=== PATIENT | female | born 1955 | race Hispanic/Latino ===

== ENCOUNTER 2020-04-01 16:58 | Emergency (ER) | payer OTHER ==
[2020-04-01 18:04] LABS: BASOPHILS % (AUTO) 0.6 % (0.0-5.0); HEMATOCRIT 41.5 % (36-48); LYMPHOCYTES % (AUTO) 37.2 % (21.0-51.0); MEAN CORPUSCULAR HEMOGLOBIN 28.6 pg (27.0-33.0); MEAN CORPUSCULAR VOLUME 89.2 fL (79-99); MONOCYTES % (AUTO) 5.8 % (3.0-13.0); NEUTROPHILS % (AUTO) 54.3 % (40.0-77.0); PLATELET COUNT (AUTO) 328 K/uL (130-400); RED BLOOD CELL COUNT(AUTO) 4.65 MIL/uL (4.00-5.50); RED CELL DISTRIBUTION WIDTH 13.3 % (11.0-15.5); WHITE BLOOD COUNT (AUTO) 7.8 K/uL (4.8-10.8)
[2020-04-01 18:09] LABS: APPEARANCE,URINE Cloudy (CLEAR); BILIRUBIN,URINE Negative (NEGATIVE); COLOR,URINE Dark Yellow (YELLOW); GLUCOSE, URINE (UA) Negative (NEGATIVE); KETONES,URINE Negative (NEGATIVE); LEUKOCYTE ESTERASE ,URINE Moderate (NEGATIVE); NITRATE,URINE Negative (NEGATIVE); OCCULT BLOOD,URINE Negative (NEGATIVE); PROTEIN,URINE Negative (NEGATIVE); UROBILINOGEN,URINE 0.2 mg/dL (0.2-1.0)
[2020-04-01] MEDS ORDERED: ONDANSETRON HCL 4 MG/2 ML VIAL ONE (18:12)
[2020-04-01 18:15] LABS: CREATININE 0.8 mg/dL (0.5-1.5)
[2020-04-01 18:19] LABS: ALBUMIN 3.5 g/dL (3.5-5.0); BILIRUBIN,TOTAL 0.3 mg/dL (0.2-1.0); TOTAL PROTEIN, SERUM 7.7 g/dL (6.0-8.3)
[2020-04-01 18:19] LABS: BACTERIA,URINE Few /HPF (None Seen); RBC,URINE None Seen /HPF (0-1); SQUAMOUS EPITHELIAL CELL,UR 0-2 /HPF (0-2)
[2020-04-01 18:20] LABS: AMORPHOUS SEDIMENT,UR Few /LPF (None Seen)
[2020-04-01] MEDS ORDERED: IOHEXOL-350 75 ML VIAL IV ONE (18:29)
[2020-04-01] MEDS ORDERED: CEFTRIAXONE SODIUM 1 GM ONE (20:30)
[2020-04-01] MEDS ORDERED: LIDOCAINE HCL-MPF 1% 2ML VIAL ONE (20:30)
== END 2020-04-01 21:05 | disposition home or self-care (01) ==
LOC: EDH 16:58
DX: N39.0 Urinary tract infection, site not specified (principal); Z90.49 Acquired absence of other specified parts of digestive tract; Z90.710 Acquired absence of both cervix and uterus; Z98.890 Other specified postprocedural states
CPT/HCPCS: 36415; 74177; 80053; 81001; 82550; 83690; 84484; 85025; 87088; 96361; 96372; 96374; 99285; J0696; J2405; J3490; Q9967

== ENCOUNTER 2024-09-20 23:45 | Emergency (ER) | payer MEDICARE, OTHER ==
[~2024-09-20] VITALS: Ht 165.1 cm; Wt 133.8 kg
--- NOTE | 2024-09-21 00:03 | NUR ---
PT CARE ASSUMED AT THIS TIME
[2024-09-21] MEDS: HYDROcodone/APAP 5/325 1 TAB TABLET PO ONE (00:15)
--- NOTE | 2024-09-21 00:44 | NUR ---
PT VOICES CONCERN REGAURDING KNEE PAIN AT THIS TIME. ED MD SNIDER MADE AWARE OF CONCERN.
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
[2024-09-21 02:33] VITALS: BP 158/79; PULSE 76; RESP 17; TEMP 99; O2SAT 97
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
== END 2024-09-21 02:44 | disposition home or self-care (01) ==
LOC: EDH 23:45
DX: R51.9 Headache, unspecified (principal); M54.2 Cervicalgia; E11.9 Type 2 diabetes mellitus without complications; E66.01 Morbid (severe) obesity due to excess calories; I10 Essential (primary) hypertension; Z90.49 Acquired absence of other specified parts of digestive tract; Z90.710 Acquired absence of both cervix and uterus; Z98.890 Other specified postprocedural states; V43.52XA Car driver injured in collision with other type car in traffic accident, initial encounter; Y93.89 Activity, other specified; Y92.488 Other paved roadways as the place of occurrence of the external cause; Y99.8 Other external cause status
CPT/HCPCS: 70450; 72125; 73562; 99284